=== PATIENT | female | born 1975 | race Caucasian/White ===

== ENCOUNTER 2017-01-28 18:16 | Emergency (ER) | payer BC ==
[2017-01-28 18:24] VITALS: BP 113/73
--- NOTE | 2017-01-28 18:42 | UC ---
Eye Complaint HPI - History of Current Complaint Chief Complaint: UCEye Stated Complaint: EYE COMPLAINT Hx Obtained From: Patient Hx Last Menstrual Period: 01/23/17 Onset/Duration: Gradual Onset - red eye started 5 days ago. was hoping tit would get better but is starting to have a "film" over it and redness persists. no known injury, no FB snesation Timing: Constant Severity Initially: Mild Severity Currently: Moderate Aggravating Factor(s): Light, Blinking Alleviating Factor(s): Nothing Associated Signs And Symptoms: Positive: Photophobia - Allergies/Home Medications Allergies/Adverse Reactions: Allergies Allergy/AdvReac Type Severity Reaction Status Date / Time Amoxicillin Allergy Severe Difficulty Verified 01/28/17 18:24 Breathing Latex Allergy Severe Rash Verified 01/28/17 18:24 Sulfa Antibiotics Allergy Unknown Verified 01/28/17 18:24 Reaction Details Home Medications: Home Medications NK [No Home Medications Reported] 01/28/17 [History Confirmed 01/28/17] PMH/Surg Hx/FS Hx/Imm Hx Previously Healthy: Yes - Surgical History Surgical History: Yes Surgery Procedure, Year, and Place: 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 - Family History Known Family History: Positive: Cardiac Disease - Father of cardiac arrest at 58, Other - Sarcoidosis - Father - Social History Occupation: Employed Full-time - counselor Lives: Alone Alcohol Use: None Substance Use Type: None Smoking Status (MU): Never Smoked Tobacco - Immunization History Most Recent Tetanus Shot: 2006 Review of Systems Constitutional: Negative Eyes: Eye Redness ENT: Negative Respiratory: Negative Cardiovascular: Negative Neurological: Negative Psychological: Negative All Other Systems Reviewed And Are Negative: Yes Physical Exam Triage Information Reviewed: Yes Appearance: Well-Appearing, No Pain Distress, Well-Nourished Vital Signs: Initial Vital Signs Temp 99.2 F 01/28/17 18:21 Pulse 63 01/28/17 18:21 Resp 16 01/28/17 18:21 BP 113/73 01/28/17 18:21 Pulse Ox 99 01/28/17 18:21 Vital Signs Reviewed: Yes Eyes: Positive: Conjunctiva Inflamed ENT Exam: Normal Neck: Positive: No Lymphadenopathy Respiratory Exam: Normal Cardiovascular Exam: Normal Neurological Exam: Normal Psychological Exam: Normal Skin Exam: Normal Eye Complaint Course/Dx - Differential Dx/Diagnosis Differential Diagnosis/HQI/PQRI: Conjunctivitis, Corneal Abrasion Provider Diagnoses: cojunctivitis OD Discharge - Discharge Plan Condition: Good Disposition: HOME Patient Education Materials: Conjunctivitis (ED) Referrals: Pauline Lopez MD [Primary Care Provider] - 2 Days (if no better) Additional Instructions: use eye drops as directed
[2017-01-28] MEDS ORDERED: Ciprofloxacin 0.3% OPTH.SOL* 2.5 ML BTL RIGHT EYE ONE (18:43)
== END 2017-01-28 18:50 | disposition home or self-care (01) ==
LOC: UCEAST 18:16
DX: H10.31 Unspecified acute conjunctivitis, right eye (principal); Z88.1 Allergy status to other antibiotic agents; Z88.2 Allergy status to sulfonamides; Z91.040 Latex allergy status
CPT/HCPCS: 99212; A9270-GY; G0463